=== PATIENT | female | born 1950 | race Caucasian/White ===

== ENCOUNTER 2024-03-02 21:47 | Inpatient (IN) ==
[2024-03-02] MEDS: HYDROmorphone 0.5 MG/0.5 ML SYRINGE IV PRN (22:18)
[2024-03-02 23:36] LABS: Basophils # (Auto) 0.02 K/mcL (0.00-0.30); Basophils % (Auto) 0.2 % (0.0-2.0); Eosinophils # (Auto) 0.06 K/mcL (0.00-0.70); Eosinophils % (Auto) 0.7 % (0.0-7.0); Hematocrit 44.7 % (34.1-44.9); Hemoglobin 14.7 g/dL (11.2-15.7); Lymphocytes # (Auto) 0.51 K/mcL (1.50-4.80); Lymphocytes % (Auto) 5.7 % (15.5-49.0); Mean Cell Volume 94.9 fL (80.0-100.0); Mean Corpuscular HGB Conc 32.9 g/dL (31.0-36.0); Mean Platelet Volume 9.4 fL (8.8-12.5); Monocytes # (Auto) 0.63 K/mcL (0.10-0.90); Neutrophils % (Auto) 86.1 % (38.0-78.0); Platelet Count 134 K/mcL (140-440); RBC 4.71 M/mcL (3.59-5.38); Red Cell Distribution Width 13.3 % (11.5-14.5)
[2024-03-02 23:46] LABS: ALT/SGPT 24 U/L (<40); AST/SGOT 36 U/L (<32); Albumin 3.9 gm/dL (3.2-5.2); Albumin/Globulin Ratio 1.3 (1.0-2.3); Alkaline Phosphatase 75 U/L (39-117); Bilirubin,Total 0.6 mg/dL (0.1-1.0); Blood Urea Nitrogen 22 mg/dL (8-23); Calcium 9.3 mg/dL (8.6-10.4); Carbon Dioxide 21 mmol/L (22-30); Chloride 103 mmol/L (96-108); Glomerular Filtration Rate 85; Glucose 109 mg/dL (70-105); Potassium 4.3 mmol/L (3.3-5.1); Sodium 136 mmol/L (133-145)
[2024-03-02] MEDS ORDERED: ACETAMINOPHEN 325 MG TABLET PO PRN (23:52)
[2024-03-02] MEDS ORDERED: ONDANSETRON 4 MG/2 ML VIAL IV PRN (23:52)
[2024-03-03] MEDS: 0.9 % SODIUM CHLORIDE 10 ML SYRINGE IV SCH (05:16)
[2024-03-03] MEDS: HYDROmorphone 1 MG/ML SYRINGE IV PRN (07:22)
[2024-03-03] MEDS ORDERED: POTASSIUM CHLORIDE 40 MEQ in DEXTROSE 5% IN WATER 500 ML IV PRN (08:42)
[2024-03-03] MEDS ORDERED: MAGNESIUM SULFATE 2 GM/50 ML BAG IV PRN (08:42)
[2024-03-03] MEDS ORDERED: POTASSIUM CHLORIDE 20 MEQ TABLET PO PRN ×3 (08:42→11:26)
[2024-03-03 09:45] LABS: ALT/SGPT 18 U/L (<40); AST/SGOT 26 U/L (<32); Albumin 3.5 gm/dL (3.2-5.2); Albumin/Globulin Ratio 1.3 (1.0-2.3); Alkaline Phosphatase 69 U/L (39-117); Bilirubin,Direct 0.4 mg/dL (<0.3); Blood Urea Nitrogen 21 mg/dL (8-23); Calcium 9.1 mg/dL (8.6-10.4); Carbon Dioxide 24 mmol/L (22-30); Chloride 103 mmol/L (96-108); Globulin 2.7 gm/dL (2.2-3.7); Glomerular Filtration Rate 85; Glucose 126 mg/dL (70-105); Lactate Dehydrogenase 231 U/L (135-225); Phosphorous 3.4 mg/dL (2.5-4.5); Potassium 4.2 mmol/L (3.3-5.1); Sodium 134 mmol/L (133-145); Triglycerides 102 mg/dL (<150); Uric Acid 4.2 mg/dL (2.5-8.0)
[2024-03-03] MEDS: oxyCODONE IR 5 MG TABLET PO PRN (10:06)
[2024-03-03] MEDS: LITHIUM CARBONATE 150 MG CAPSULE PO SCH (10:07)
[2024-03-03] MEDS: ENOXAPARIN 40 MG/0.4 ML SYRINGE SQ SCH (10:07)
[2024-03-03] MEDS: IBUPROFEN 600 MG TABLET PO PRN (10:07)
[2024-03-03] MEDS: LEVOTHYROXINE 88 MCG TABLET PO SCH (10:07)
[2024-03-03] MEDS: DOCUSATE SODIUM 100 MG CAPSULE PO SCH (10:07)
[2024-03-03] MEDS: LIDOCAINE 4% TOP PATCH TOPICAL SCH (10:13)
[2024-03-03] MEDS: fentaNYL 12 MCG PATCH TOPICAL SCH (10:19)
[2024-03-03] MEDS: TEMAZEPAM 15 MG CAPSULE PO SCH (21:09)
[2024-03-03] MEDS: SENNOSIDES 1 TABLET PO SCH (21:11)
[2024-03-04] MEDS: HYDROmorphone 1 MG/ML SYRINGE IV PRN (08:40)
[2024-03-04] MEDS: oxyCODONE/APAP 5/325MG TABLET PO PRN (08:48)
[2024-03-04] MEDS: FUROSEMIDE 40 MG/4 ML VIAL IV ONE ×2 (10:19→15:11)
[2024-03-05 06:31] LABS: ALT/SGPT 11 U/L (<40); AST/SGOT 19 U/L (<32); Albumin 3.4 gm/dL (3.2-5.2); Albumin/Globulin Ratio 1.3 (1.0-2.3); Alkaline Phosphatase 62 U/L (39-117); Bilirubin,Direct 0.3 mg/dL (<0.3); Bilirubin,Total 0.9 mg/dL (0.1-1.0); Blood Urea Nitrogen 21 mg/dL (8-23); Calcium 9.5 mg/dL (8.6-10.4); Carbon Dioxide 28 mmol/L (22-30); Chloride 102 mmol/L (96-108); Globulin 2.6 gm/dL (2.2-3.7); Glomerular Filtration Rate 72; Glucose 108 mg/dL (70-105); Lactate Dehydrogenase 201 U/L (135-225); Phosphorous 3.8 mg/dL (2.5-4.5); Sodium 137 mmol/L (133-145); Triglycerides 127 mg/dL (<150)
[2024-03-05] MEDS: FUROSEMIDE 40 MG/4 ML VIAL IV ONE (10:09)
[2024-03-05] MEDS: fentaNYL 12 MCG PATCH TOPICAL SCH (11:34)
[2024-03-05] MEDS: IPRATROPIUM/ALBUTEROL 3 ML AMPUL.NEB NEB PRN (19:55)
[2024-03-06] MEDS ORDERED: morphine 2 MG/ML VIAL IV PRN (07:27)
[2024-03-06] MEDS: oxyCODONE/APAP 5/325MG TABLET PO PRN (08:04)
[2024-03-06 11:09] LABS: Lithium Test 1.1 mmol/L
[2024-03-06] MEDS: POLYETHYLENE GLYCOL 3350 17 GM PACKET PO PRN (12:54)
[2024-03-06] MEDS: MELATONIN 3 MG TABLET PO SCH (19:15)
[2024-03-06] MEDS ORDERED: diphenhydrAMINE 25 MG CAPSULE PO PRN (21:00)
[2024-03-07] MEDS: BISACODYL 10 MG SUPP.RECT PR ONE (10:32)
[2024-03-07] MEDS ORDERED: IOPAMIDOL 100 ML BOTTLE IV ONE (11:37)
[2024-03-08] MEDS: TEMAZEPAM 15 MG CAPSULE PO PRN (00:41)
[2024-03-08 05:51] LABS: Basophils # (Auto) 0.03 K/mcL (0.00-0.30); Basophils % (Auto) 0.5 % (0.0-2.0); Eosinophils # (Auto) 0.38 K/mcL (0.00-0.70); Eosinophils % (Auto) 6.4 % (0.0-7.0); Hematocrit 34.8 % (34.1-44.9); Lymphocytes # (Auto) 0.85 K/mcL (1.50-4.80); Lymphocytes % (Auto) 14.4 % (15.5-49.0); Mean Cell Volume 91.8 fL (80.0-100.0); Mean Corpuscular HGB Conc 34.5 g/dL (31.0-36.0); Mean Platelet Volume 9.2 fL (8.8-12.5); Monocytes % (Auto) 10.2 % (1.0-12.0); Neutrophils % (Auto) 68.3 % (38.0-78.0); Platelet Count 118 K/mcL (140-440); RBC 3.79 M/mcL (3.59-5.38); WBC 5.9 K/mcL (4.5-11.0)
[2024-03-08] MEDS ORDERED: POLYETHYLENE GLYCOL 3350 17 GM PACKET PO SCH (09:30)
[2024-03-08] MEDS ORDERED: SENNOSIDES 1 TABLET PO SCH (21:00)
== END 2024-03-08 14:08 | DRG 551 ==
LOC: ED 21:47 → MEDSUR 03-03 00:57
PROVIDERS: ADMIT Internal Medicine; ATTEND Internal Medicine